=== PATIENT | female | born 1980 | race Caucasian/White ===

== ENCOUNTER 2021-04-20 10:13 | Day surgery (SDC) | payer OTHER, SELFPAY ==
[~2021-04-20] VITALS: Ht 157.5 cm; Wt 93.9 kg
[2021-04-20] MEDS ORDERED: fentaNYL citrate 0.05 MG/ML VIAL ONE (14:29)
[2021-04-20] MEDS ORDERED: PROPOFOL 200 MG/20 ML VIAL IV ONE (14:29)
[2021-04-20] MEDS ORDERED: DEXAMETHASONE 4 MG/ML VIAL ONE (14:30)
[2021-04-20] MEDS ORDERED: ROCURONIUM 50 MG/5 ML VIAL IV ONE (14:30)
[2021-04-20] MEDS ORDERED: SEVOFLURANE 250 ML BTL INH ONE (14:30)
[2021-04-20] MEDS ORDERED: NEOSTIGMINE 1:1000 10 MG/10 ML VIAL ONE (14:30)
[2021-04-20] MEDS ORDERED: GLYCOPYRROLATE 0.2 MG/ML VIAL ONE (14:48)
[2021-04-20] MEDS ORDERED: ESMOLOL 10 ML IV ONE (15:06)
[2021-04-20] MEDS ORDERED: ONDANSETRON 4 MG/2 ML VIAL ONE (15:07)
[2021-04-20] MEDS ORDERED: METOCLOPRAMIDE 10 MG/2 ML INJ VIAL ONE (15:07)
[2021-04-20] MEDS ORDERED: KETOROLAC 30 MG/ML VIAL ONE (15:07)
[2021-04-20] MEDS ORDERED: LACTATED RINGERS 1,000 ML IV SCH (15:25)
[2021-04-20] MEDS ORDERED: ONDANSETRON 4 MG/2 ML VIAL IVP PRN (15:25)
[2021-04-20] MEDS ORDERED: MEPERIDINE 25 MG/ML SYR IVP PRN (15:25)
[2021-04-20] MEDS ORDERED: oxyCODONE/APAP 5/325 MG 1 TAB TAB PO PRN (15:25)
[2021-04-20] MEDS ORDERED: fentaNYL citrate 0.05 MG/ML VIAL IVP PRN (15:25)
[2021-04-20] MEDS ORDERED: diphenhydrAMINE 50 MG/ML VIAL IVP PRN (15:25)
== END 2021-04-20 16:16 | disposition home or self-care (01) ==
LOC: MDS 10:13 → MMU 10:23 → EDSTATUS 12:30 → MDS 16:16
PROVIDERS: ATTEND Obstetrics & Gynecology
DX: N92.0 Excessive and frequent menstruation with regular cycle (principal); D25.1 Intramural leiomyoma of uterus; J45.909 Unspecified asthma, uncomplicated; F41.9 Anxiety disorder, unspecified; Z91.030 Bee allergy status; E11.9 Type 2 diabetes mellitus without complications; Z79.84 Long term (current) use of oral hypoglycemic drugs; Z79.899 Other long term (current) drug therapy; Z20.822 Contact with and (suspected) exposure to COVID-19
CPT/HCPCS: 58563; 82948; J1100; J1885; J2405; J2704; J2710; J2765; J3010; J3490; U0003